=== PATIENT | female | born 1950 | race Hispanic/Latino ===

== ENCOUNTER 2018-02-16 08:53 | Day surgery (SDC) | payer OTHER ==
[~2018-02-16] VITALS: Ht 157.5 cm; Wt 72.5 kg
[~2018-02-16 08:53] MED LIST: ASPI-1181 PO; CALC-1038 PO; CITA10TA7 PO; LISI-613 PO; MULT-1258 PO; RANI150T7 PO; SIMV40TA5 PO; SODIUM CHLORIDE 0.9% 1000ML 1,000 ML IV ONE; TOPI50TA24 PO
[2018-02-16 09:37] VITALS: BP 131/61
[2018-02-16] MEDS ORDERED: PROPOFOL 10 MG/ML 20ML VIAL IV ONE (11:03)
[2018-02-16 11:22] VITALS: BP 84/45
== END 2018-02-16 12:00 | disposition home or self-care (01) ==
LOC: ENDO 08:53 → DAH 08:53 → ENDO 12:00
PROVIDERS: ATTEND Internal Medicine Gastroenterology
DX: Z09 Encounter for follow-up examination after completed treatment for conditions other than malignant neoplasm (principal); K21.9 Gastro-esophageal reflux disease without esophagitis; I10 Essential (primary) hypertension; G47.33 Obstructive sleep apnea (adult) (pediatric); G43.909 Migraine, unspecified, not intractable, without status migrainosus; Z86.010 Personal history of colon polyps; E78.4 Other hyperlipidemia; Z98.890 Other specified postprocedural states; Z79.899 Other long term (current) drug therapy; Z79.82 Long term (current) use of aspirin
CPT/HCPCS: 93005; A4606; G0105; J2704; J7030